=== PATIENT | female | born 1975 | race Two or more races ===

== ENCOUNTER 2025-02-12 13:48 | Emergency (ER) | payer OTHER, MEDICAID ==
[~2025-02-12] VITALS: Ht 172.7 cm; Wt 40.8 kg
[2025-02-12 14:30] LABS: BASOPHILS % (AUTO) 0.5 % (0.0-2.0); EOSINOPHILS # (AUTO) 0.2 K/uL (0.0-0.7); EOSINOPHILS % (AUTO) 3.9 % (0.0-6.0); HEMATOCRIT 39 % (33-45); HEMOGLOBIN 12.4 g/dL (11.5-14.8); LYMPHOCYTES % (AUTO) 41.6 % (20.0-44.0); MEAN CORPUSCULAR HEMOGLOBIN 25 PG (26.0-33.0); MEAN CORPUSCULAR HGB CONC 32 g/dl (31.0-36.0); MEAN CORPUSCULAR VOLUME 80 fL (82-100); MONOCYTES # (AUTO) 0.4 K/uL (0.1-1.30); MONOCYTES % (AUTO) 9.5 % (2.0-12.0); NEUTROPHILS # (AUTO) 2.1 K/uL (1.8-8.9); NEUTROPHILS % (AUTO) 44.5 % (43.0-81.0); PLATELET COUNT (AUTO) 212 K/uL (150-450); RED BLOOD CELL COUNT(AUTO) 4.93 MIL/uL (4.0-5.2); RED CELL DISTRIBUTION WIDTH 20.9 % (11.5-15.0); WHITE BLOOD COUNT (AUTO) 4.7 K/uL (4.3-11.0)
[2025-02-12 14:42] LABS: CALCIUM, SERUM 8.9 mg/dL (8.5-10.1); CREATININE 0.3 mg/dL (0.6-1.3); POTASSIUM 3.8 mmol/L (3.5-5.1)
[2025-02-12 14:56] LABS: ALBUMIN 3.1 g/dL (3.4-5.0); BILIRUBIN,DIRECT 0.1 mg/dL (0.0-0.2); BILIRUBIN,TOTAL 0.2 mg/dL (0.2-1.0); TOTAL PROTEIN, SERUM 6.9 g/dL (6.4-8.2)
[2025-02-12 14:57] LABS: THYROID STIMULATING HORMONE 0.34 uIU/mL (0.358-3.74)
[2025-02-12 15:04] LABS: INR 1.07 (0.91-1.10); PARTIAL THROMBOPLASTIN TIME 30.8 SEC (24.3-34.3); PROTHROMBIN TIME 11.3 SECS (9.2-11.1)
[2025-02-12] MEDS: IV NS 0.9% 1,000 ML BAG IV ONE (15:30)
[2025-02-12] MEDS ORDERED: IV NS 0.9% 250 ML IV ONE (15:30)
[2025-02-12] MEDS ORDERED: IOHEXOL-300 100 ML VIAL IV ONE (15:30)
[2025-02-12 18:26] LABS: APPEARANCE,URINE BLOODY (CLEAR)
[2025-02-12 18:27] LABS: COLOR,URINE RED (YELLOW)
[2025-02-12 18:28] LABS: BACTERIA,URINE Rare /HPF (None Seen); RBC,URINE TOO NUMEROUS TO COUN /HPF (0-2); SQUAMOUS EPITHELIAL CELL,UR 0-2 /HPF (None Seen)
[2025-02-12] MEDS: CEFEPIME 1 GM in IV D5W 50 ML IV ONE (18:30)
[2025-02-12] MEDS: VANCOMYCIN 1 GM in IV D5W 250 ML IV ONE (19:30)
[2025-02-12] MEDS: ONDANSETRON HCL/PF 4 MG/2 ML VIAL IV ONE (20:00)
[2025-02-12] MEDS ORDERED: ONDANSETRON HCL/PF 4 MG/2 ML VIAL ONE (20:02)
[2025-02-12] MEDS ORDERED: MORPHINE SULFATE INJ 2 MG/ML DISP.SYRIN ONE (20:02)
[2025-02-12] MEDS: MORPHINE SULFATE INJ 2 MG/ML DISP.SYRIN IV ONE (20:11)
[2025-02-12 23:01] VITALS: BP 137/97; TEMP 98; O2SAT 99
== END 2025-02-12 23:02 ==
LOC: ER 14:14
DX: L98.418 Non-pressure chronic ulcer of buttock with other specified severity (principal); G35 Multiple sclerosis; R10.2 Pelvic and perineal pain; Z88.5 Allergy status to narcotic agent; Z88.8 Allergy status to other drugs, medicaments and biological substances; Z79.899 Other long term (current) drug therapy; Z86.2 Personal history of diseases of the blood and blood-forming organs and certain disorders involving the immune mechanism; Z20.822 Contact with and (suspected) exposure to COVID-19
CPT/HCPCS: 99285; 96365; 72193; 96375; 96367; 96361; 87426; 51702; 87804 ×2; 85025; 80048; 82550; 87040 ×2; 87086; 80076; 81001; 36415; 84443; 85730; 84702; J3370; J2405; J7060; J7030; J7050; J2270; J0692; Q9967; A4223